=== PATIENT | female | born 2000 | race Caucasian/White ===

== ENCOUNTER 2018-01-05 21:13 | Emergency (ER) | payer MEDICAID, OTHER ==
[~2018-01-05] VITALS: Ht 165.1 cm; Wt 47.0 kg
[~2018-01-05 21:13] MED LIST: ARIP5TAB4 PO; CEPH500C5 PO; ESCI5TAB PO; SULF-117 PO
[2018-01-05 21:26] VITALS: BP 113/75
[2018-01-05 21:53] LABS: URINE HCG NEGATIVE (NEG)
[2018-01-05 21:56] LABS: CLARITY,URINE CLEAR (Clear); COLOR,URINE ORANGE (Yellow)
[2018-01-05 22:00] LABS: UA COLLECTION TYPE NON-SPECIFIED
[2018-01-05 22:04] LABS: SQUAMOUS EPITHELIAL CELL,UR MODERATE /LPF (FEW)
[2018-01-05 22:05] LABS: MUCUS STRANDS MODERATE /LPF (Neg)
[2018-01-05 22:06] LABS: BACTERIA,URINE 3+ /HPF (Neg); RBC,URINE 0-2 /HPF (0-2); WBC,URINE 50-100 /HPF (0-4)
[2018-01-05] MEDS ORDERED: PHEN-716 PO (22:15)
[2018-01-05] MEDS ORDERED: CEPH500C2 PO (22:15)
== END 2018-01-05 22:23 | disposition home or self-care (01) ==
LOC: ER 21:13
DX: N39.0 Urinary tract infection, site not specified (principal); J45.909 Unspecified asthma, uncomplicated
CPT/HCPCS: 81001; 81025; 87077; 87088; 87186; 99284

== ENCOUNTER 2018-01-23 10:36 | Emergency (ER) | payer MEDICAID ==
[~2018-01-23] VITALS: Ht 165.1 cm; Wt 46.5 kg
[~2018-01-23 10:36] MED LIST changes: +CEPH500C2 PO; +PHEN-716 PO
[2018-01-23 10:40] VITALS: BP 119/70
[2018-01-23] MEDS ORDERED: CefTRIAXone 1000mg IM Kit (w/lidocaine diluent) IM ONE (11:00)
[2018-01-23] MEDS ORDERED: azithromycin 250mg tablet PO ONE (11:00)
== END 2018-01-23 11:41 | disposition home or self-care (01) ==
LOC: ER 10:36
DX: A64 Unspecified sexually transmitted disease (principal); J45.909 Unspecified asthma, uncomplicated; Z79.899 Other long term (current) drug therapy
CPT/HCPCS: 36415; 87491; 87591; 96372; 99284; J0696

== ENCOUNTER 2018-11-02 19:04 | Emergency (ER) | payer MEDICAID ==
[~2018-11-02] VITALS: Ht 165.1 cm; Wt 42.9 kg
[~2018-11-02 19:04] MED LIST changes: -CEPH500C2 PO; -CEPH500C5 PO
[2018-11-02 19:22] VITALS: BP 123/71
[2018-11-02 20:33] LABS: URINE HCG NEGATIVE (NEG)
[2018-11-02] MEDS ORDERED: CefTRIAXone 1000mg IM Kit (w/lidocaine diluent) IM ONE (21:00)
[2018-11-02] MEDS ORDERED: azithromycin 250mg tablet PO ONE (21:00)
== END 2018-11-02 21:48 | disposition home or self-care (01) ==
LOC: ER 19:05
DX: N89.8 Other specified noninflammatory disorders of vagina (principal); N94.10 Unspecified dyspareunia; R39.15 Urgency of urination; J45.909 Unspecified asthma, uncomplicated; F17.200 Nicotine dependence, unspecified, uncomplicated; Z79.899 Other long term (current) drug therapy
CPT/HCPCS: 36415; 81025; 87210; 87491; 87591; 96372; 99283; J0696

== ENCOUNTER 2018-11-22 07:32 | Emergency (ER) | payer MEDICAID ==
[~2018-11-22] VITALS: Ht 165.1 cm; Wt 48.6 kg
[2018-11-22 07:35] VITALS: BP 111/66
[2018-11-22] MEDS ORDERED: BENZ-16 PO (08:00)
[2018-11-22] MEDS ORDERED: AFRIN NS (08:00)
== END 2018-11-22 08:09 | disposition home or self-care (01) ==
LOC: ER 07:33
DX: J06.9 Acute upper respiratory infection, unspecified (principal); J45.909 Unspecified asthma, uncomplicated; F17.210 Nicotine dependence, cigarettes, uncomplicated; Z71.6 Tobacco abuse counseling; Z79.899 Other long term (current) drug therapy
CPT/HCPCS: 99283; 99406

== ENCOUNTER 2019-03-23 12:51 | Emergency (ER) | payer MEDICAID ==
[~2019-03-23] VITALS: Ht 165.1 cm; Wt 50.0 kg
[2019-03-23 12:52] VITALS: BP 96/64
[2019-03-23] MEDS ORDERED: AMOX-580 PO (14:05)
== END 2019-03-23 14:17 | disposition home or self-care (01) ==
LOC: ER 12:51
DX: H66.91 Otitis media, unspecified, right ear (principal); J45.909 Unspecified asthma, uncomplicated; Z79.899 Other long term (current) drug therapy
CPT/HCPCS: 99283

== ENCOUNTER 2019-04-05 19:52 | Emergency (ER) | payer MEDICAID ==
[~2019-04-05] VITALS: Ht 165.1 cm; Wt 49.0 kg
[~2019-04-05 19:52] MED LIST changes: +AMOX-580 PO
[2019-04-05 20:14] VITALS: BP 112/64
[2019-04-05] MEDS ORDERED: NEOM10DR45 RIGHT EAR (22:03)
== END 2019-04-05 22:20 | disposition home or self-care (01) ==
LOC: ER 19:52
DX: H60.91 Unspecified otitis externa, right ear (principal); J45.909 Unspecified asthma, uncomplicated; Z79.2 Long term (current) use of antibiotics; Z79.899 Other long term (current) drug therapy
CPT/HCPCS: 99283

== ENCOUNTER 2019-07-19 15:29 | Emergency (ER) | payer MEDICAID ==
[~2019-07-19] VITALS: Ht 165.1 cm; Wt 46.6 kg
[~2019-07-19 15:29] MED LIST changes: -AMOX-580 PO; +ARIP5TAB14 PO; -ARIP5TAB4 PO; +NEOM10DR45 RIGHT EAR
[2019-07-19] MEDS ORDERED: ketorolac trometh. 30mg/ml inj. IM ONE (16:05)
[2019-07-19 16:43] LABS: EOSINOPHILS # (AUTO) 0.1 X10'3 (0-0.9); EOSINOPHILS % (AUTO) 2.6 % (0-6); HEMATOCRIT 37.3 % (35.0-45.0); HEMOGLOBIN 12.8 g/dl (12.0-16.0); LYMPHOCYTES # (AUTO) 0.9 X10'3 (1.1-4.8); LYMPHOCYTES % (AUTO) 23.8 % (21-51); MEAN CORPUSCULAR HEMOGLOBIN 30.3 PG (27.0-31.0); MEAN CORPUSCULAR HGB CONC 34.4 g/dL (33.0-36.5); MEAN CORPUSCULAR VOLUME 88.2 FL (78-98); MEAN PLATELET VOLUME 8.3 FL (7.4-10.4); MONOCYTES # (AUTO) 0.5 X10'3 (0-0.9); MONOCYTES % (AUTO) 12.8 % (2-12); NEUTROPHILS # (AUTO) 2.2 X10'3 (1.8-7.7); NEUTROPHILS % (AUTO) 59.8 % (42-75); PLATELET COUNT 172 X10'3 (140-440); RED BLOOD COUNT 4.23 X10'6 (4.20-5.60); RED CELL DISTRIBUTION WIDTH 13.3 % (11.5-14.5); WHITE BLOOD COUNT 3.6 X10'3 (4.5-11.0)
[2019-07-19] MEDS ORDERED: TAM75C PO (16:54)
[2019-07-19] MEDS ORDERED: AZIT-63 PO (16:54)
[2019-07-19] MEDS ORDERED: oseltamivir phos 75mg capsule PO ONE (16:55)
[2019-07-19] MEDS ORDERED: azithromycin 250mg tablet PO ONE (16:55)
[2019-07-19 17:05] VITALS: BP 111/78
== END 2019-07-19 17:07 | disposition home or self-care (01) ==
LOC: ER 15:29
DX: J11.1 Influenza due to unidentified influenza virus with other respiratory manifestations (principal); J45.909 Unspecified asthma, uncomplicated; Z79.899 Other long term (current) drug therapy
CPT/HCPCS: 36415; 85025; 87502; 87503; 96372; 99283; J1885

== ENCOUNTER 2020-06-28 05:43 | Emergency (ER) | payer MEDICAID ==
[~2020-06-28] VITALS: Ht 165.1 cm; Wt 43.2 kg
[2020-06-28] MEDS ORDERED: acetaminophen 325mg tablet PO PRN (05:50)
[2020-06-28] MEDS ORDERED: normal saline 1000ml 1,000 ML IVB ONE (05:50)
[2020-06-28 06:37] LABS: BASOPHILS % (AUTO) 0.2 % (0-1); EOSINOPHILS % (AUTO) 0.1 % (0-6); HEMOGLOBIN 14.2 g/dl (12.0-16.0); LYMPHOCYTES # (AUTO) 0.5 X10'3 (1.1-4.8); LYMPHOCYTES % (AUTO) 2.8 % (21-51); MEAN CORPUSCULAR HEMOGLOBIN 29.5 PG (27.0-31.0); MEAN CORPUSCULAR HGB CONC 33.8 g/dL (33.0-36.5); MEAN CORPUSCULAR VOLUME 87.3 FL (78-98); MEAN PLATELET VOLUME 8.7 FL (7.4-10.4); MONOCYTES # (AUTO) 0.6 X10'3 (0-0.9); MONOCYTES % (AUTO) 3.4 % (2-12); NEUTROPHILS # (AUTO) 15.3 X10'3 (1.8-7.7); NEUTROPHILS % (AUTO) 93.5 % (42-75); PLATELET COUNT 143 X10'3 (140-440); RED BLOOD COUNT 4.81 X10'6 (4.20-5.60); RED CELL DISTRIBUTION WIDTH 13.1 % (11.5-14.5); WHITE BLOOD COUNT 16.3 X10'3 (4.5-11.0)
[2020-06-28] MEDS ORDERED: normal saline 1000ml 1,000 ML IV ONE ×2 (06:55→13:10)
[2020-06-28 06:57] LABS: ALANINE AMINOTRANSFERASE 22 U/L (12-78); ALBUMIN 3.3 G/DL (3.4-5.0); ALBUMIN/GLOBULIN RATIO 0.8 (1.1-1.5); ALKALINE PHOSPHATASE 65 IU/L (46-116); ANION GAP 12 (8-16); ASPARTATE AMINO TRANSFERASE 60 U/L (10-37); BILIRUBIN,TOTAL 0.7 MG/DL (0.1-1.0); BLOOD UREA NITROGEN 16 MG/DL (7-18); BUN/CREATININE RATIO 18.8 (6.6-38.0); CALCIUM 8.5 MG/DL (8.5-10.1); CHLORIDE 99 MMOL/L (99-107); CREATININE 0.85 MG/DL (0.40-0.90); GLUCOSE 114 MG/DL (70-104); POTASSIUM 3.9 MMOL/L (3.5-5.1); SODIUM 135 MMOL/L (135-145); TOTAL CARBON DIOXIDE 24.2 MMOL/L (24-32); TOTAL PROTEIN 7.7 G/DL (6.4-8.2); eGFR 84 ML/MIN
[2020-06-28 07:04] LABS: TOTAL CELLS COUNTED 100
[2020-06-28 07:05] LABS: PLATELET ESTIMATE NORMAL; TOXIC VACUOLATION 2+
[2020-06-28] MEDS: ibuprofen tablet 400 MG TABLET PO ONE ×2 (07:15→08:15)
[2020-06-28 11:58] LABS: URINE HCG NEGATIVE (NEG)
[2020-06-28 12:00] LABS: CLARITY,URINE SLIGHTLY CLOUDY (Clear); COLOR,URINE YELLOW (Yellow); GLUCOSE, URINE NEGATIVE (Neg); KETONES,URINE NEGATIVE (Neg); LEUKOCYTE ESTERASE ,URINE SMALL (Neg); NITRITES, URINE NEGATIVE (Neg); OCCULT BLOOD,URINE TRACE-LYSED (Neg); PROTEIN,URINE NEGATIVE (Neg); UROBILINOGEN,URINE 0.2 E.U/dL (0.2-1.0)
[2020-06-28 12:16] LABS: URINE AMPHETAMINE SCREEN NEGATIVE (Neg); URINE BARBITUATE SCREEN NEGATIVE (Neg); URINE BENZODIAZEPINES SCREEN NEGATIVE (Neg); URINE CANNABINOID SCREEN NEGATIVE (Neg); URINE COCAINE SCREEN NEGATIVE (Neg); URINE METHADONE SCREEN NEGATIVE (Neg); URINE OPIATE SCREEN POSITIVE (Neg); URINE PHENCYCLIDINE SCREEN NEGATIVE (Neg)
[2020-06-28 12:22] LABS: UA COLLECTION TYPE STRAIGHT CATH
[2020-06-28 12:24] LABS: BACTERIA,URINE 3+ /HPF (Neg); HYALINE CASTS 0-3 /LPF (NEGATIVE); MUCUS STRANDS FEW /LPF (Neg); RBC,URINE 0-2 /HPF (0-2); SQUAMOUS EPITHELIAL CELL,UR FEW /LPF (FEW); WBC,URINE 20-30 /HPF (0-4)
[2020-06-28] MEDS ORDERED: CefTRIAXone/D5W-Rocephin 1gm 50 ML IV ONE (12:30)
[2020-06-28] MEDS ORDERED: CEFD300C3 PO (12:34)
[2020-06-28] MEDS ORDERED: acetaminophen 325mg tablet PO ONE (13:10)
[2020-06-28 15:37] VITALS: BP 109/71
== END 2020-06-28 15:44 | disposition home or self-care (01) ==
LOC: ER 05:43
DX: U07.1 COVID-19 (principal); N12 Tubulo-interstitial nephritis, not specified as acute or chronic; R53.81 Other malaise; R50.9 Fever, unspecified; J02.9 Acute pharyngitis, unspecified; R05 Cough; J45.909 Unspecified asthma, uncomplicated; Z87.440 Personal history of urinary (tract) infections; Z79.2 Long term (current) use of antibiotics; Z79.899 Other long term (current) drug therapy
CPT/HCPCS: 36415; 71045; 80053; 80305; 81001; 81025; 83605; 84145; 85007; 85025; 87040; 87077; 87088; 87186; 87635; 93005; 96361; 96365; 99285; C9803; J0696; J7030

== ENCOUNTER 2020-06-30 18:34 | Inpatient (IN) | payer MEDICAID ==
[~2020-06-30] VITALS: Ht 165.1 cm; Wt 46.9 kg
[2020-06-30] MEDS: normal saline 1000ml 1,000 ML IV SCH (01:15)
[~2020-06-30 18:34] MED LIST changes: +CEFD300C3 PO
[2020-06-30] MEDS ORDERED: dexamethasone sod phosphate 10mg/ml inj IV STA (18:55)
[2020-06-30] MEDS ORDERED: CefTRIAXone/D5W-Rocephin 1gm 50 ML IV ONE (19:00)
[2020-06-30] MEDS ORDERED: normal saline 1000ml 1,000 ML IV ONE (19:00)
[2020-06-30 19:26] LABS: ABG BASE EXCESS -1.4 mmol/L (-2.0-2.0); ABG HCO3 22.1 mmol/L (22.0-26.0); ABG OXYGEN SATURATION 83.7 % (94-97); ABG PCO2 (T) 32.8 mmHg (32.0-45.0); ABG PO2 (T) 47.3 mmHg (75.0-100.0); ALLEN'S TEST POSITIVE; FCOHb 0.3 % (0.0-3.9); FLOW 6 L/min; FMetHb 0.2 % (0.0-1.5); FO2Hb 83.3 % (94-97); PATIENT TEMPERATURE 36.6; TOTAL HEMOGLOBIN 12.5 G/dl (12.0-16.0)
--- NOTE | 2020-06-30 19:28 | NUR ---
O2 TURNED DOWN TO 12 L FOR PT COMFORT. 02 96%
[2020-06-30] MEDS ORDERED: LORazepam 2 mg/ml vial IV ONE (19:30)
[2020-06-30] MEDS ORDERED: ketorolac tromethamine 15mg/ml inj. IV ONE (19:30)
[2020-06-30] MEDS ORDERED: acetaminophen 325mg tablet PO ONE (19:30)
--- NOTE | 2020-06-30 19:49 | NUR ---
ATIVAN PULLED, PARTIAL DOSE WASTED IN OMNICELL WITH SECOND RN. MEDICATION HANDED OFF TO PRIMARY RN, WILBUR FOR ADMINISTRATION
[2020-06-30 20:14] LABS: BASOPHILS % (AUTO) 0.2 % (0-1); EOSINOPHILS # (AUTO) 0.1 X10'3 (0-0.9); EOSINOPHILS % (AUTO) 1.3 % (0-6); HEMATOCRIT 34.2 % (35.0-45.0); HEMOGLOBIN 11.8 g/dl (12.0-16.0); LYMPHOCYTES # (AUTO) 0.9 X10'3 (1.1-4.8); LYMPHOCYTES % (AUTO) 8.5 % (21-51); MEAN CORPUSCULAR HEMOGLOBIN 29.9 PG (27.0-31.0); MEAN CORPUSCULAR HGB CONC 34.3 g/dL (33.0-36.5); MEAN CORPUSCULAR VOLUME 86.9 FL (78-98); MEAN PLATELET VOLUME 10.3 FL (7.4-10.4); MONOCYTES # (AUTO) 0.7 X10'3 (0-0.9); MONOCYTES % (AUTO) 7.1 % (2-12); NEUTROPHILS # (AUTO) 8.3 X10'3 (1.8-7.7); NEUTROPHILS % (AUTO) 82.9 % (42-75); PLATELET COUNT 78 X10'3 (140-440); RED BLOOD COUNT 3.94 X10'6 (4.20-5.60); RED CELL DISTRIBUTION WIDTH 13.8 % (11.5-14.5); WHITE BLOOD COUNT 10.1 X10'3 (4.5-11.0)
[2020-06-30] MEDS ORDERED: succinylcholine 20mg/ml inj IV ONE (20:30)
[2020-06-30 20:38] LABS: D-DIMER 6.43 MG/L FEU (0-0.50)
--- NOTE | 2020-06-30 20:39 | NUR ---
Pt.'s father called to check on pt. and would like Pt.'s RN to call him with updates. Cell Phone # [phone] Addendum: 06/30/20 at 4 by PABLO Pt's father's name is Williams
[2020-06-30 20:49] LABS: ALANINE AMINOTRANSFERASE 39 U/L (12-78); ALBUMIN 1.9 G/DL (3.4-5.0); ALBUMIN/GLOBULIN RATIO 0.5 (1.1-1.5); ALKALINE PHOSPHATASE 80 IU/L (46-116); ANION GAP 10 (8-16); ASPARTATE AMINO TRANSFERASE 82 U/L (10-37); BILIRUBIN,TOTAL 0.8 MG/DL (0.1-1.0); BLOOD UREA NITROGEN 32 MG/DL (7-18); CALCIUM 6.7 MG/DL (8.5-10.1); CHLORIDE 106 MMOL/L (99-107); GLUCOSE 109 MG/DL (70-104); LACTATE DEHYDROGENASE 823 U/L (81-234); SODIUM 139 MMOL/L (135-145); TOTAL CARBON DIOXIDE 23.5 MMOL/L (24-32); TOTAL PROTEIN 5.9 G/DL (6.4-8.2); eGFR > 90 ML/MIN
[2020-06-30] MEDS: midazolam 100mg in NS 100ml 100 ML IV PRN ×2 (20:50→22:51)
[2020-06-30] MEDS: FENTANYL-0.9 % NACL/PF 100 ML IV PRN ×2 (20:50→22:50)
[2020-06-30] MEDS ORDERED: etomidate 2mg/ml inj. IV ONE ×2 (20:50→21:00)
[2020-06-30] MEDS ORDERED: fentaNYL/PF 50MCG/1 ML 2ML syringe ONE (20:53)
[2020-06-30 20:54] LABS: FERRITIN 2595 NG/ML (8-252)
[2020-06-30] MEDS ORDERED: MIDAZolam 5mg/ml 2ml vial IV ONE (20:55)
[2020-06-30] MEDS ORDERED: fentaNYL/PF 50MCG/1 ML 2ML syringe IV ONE (20:55)
[2020-06-30 20:56] LABS: POTASSIUM 2.8 MMOL/L (3.5-5.1)
--- NOTE | 2020-06-30 21:02 | NUR ---
Versed and Fentanyl drips handed to Dr. Johnson in Pt. room.
[2020-06-30 21:09] LABS: C-REACTIVE PROTEIN 31.77 MG/DL (0.0-0.5)
[2020-06-30] MEDS ORDERED: iohexol 350MG/ML 100ml bottle IV ONE (21:14)
[2020-06-30 21:15] LABS: ABG BASE EXCESS -5.9 mmol/L (-2.0-2.0); ABG HCO3 18.9 mmol/L (22.0-26.0); ABG OXYGEN SATURATION 91.4 % (94-97); ABG PCO2 (T) 33.8 mmHg (32.0-45.0); ALLEN'S TEST POSITIVE; FCOHb 0.1 % (0.0-3.9); FMetHb 0.1 % (0.0-1.5); FO2Hb 91.2 % (94-97); PATIENT TEMPERATURE 36.4; PEEP 10 cm H2O; RESPIRATORY RATE 18 b/min; TIDAL VOLUME 400 mL; TOTAL HEMOGLOBIN 12.1 G/dl (12.0-16.0)
[2020-06-30 22:02] LABS: TROPONIN I 0.05 NG/ML (0.0-0.05)
[2020-06-30] MEDS ORDERED: ondansetron/PF 4mg/2ml inj IV PRN (23:10)
[2020-06-30] MEDS ORDERED: LIDOcaine 2% 10ml TOPICAL JELLY (Urojet) TP ONE (23:10)
[2020-06-30] MEDS ORDERED: potassium CL 10mEq/100ml bag 100 ML IV PRN ×2 (23:10)
[2020-06-30] MEDS ORDERED: potassium Cl 20 mEq SR tablet PO PRN ×2 (23:10)
[2020-06-30] MEDS ORDERED: potassium Cl 20mEq/100mL bag 100 ML IV PRN (23:10)
[2020-06-30] MEDS ORDERED: potassium Cl 10 mEq/100mL bag IV ONE (23:10)
[2020-06-30] MEDS ORDERED: morphine 2 MG/ML inj. syringe IV PRN (23:10)
[2020-06-30] MEDS ORDERED: morphine 4 MG/ML inj SYRINge IV PRN (23:10)
[2020-06-30] MEDS: K, MAG and/or Phos replacement - Verify level? MC SCH (23:10)
[2020-06-30] MEDS ORDERED: FENTANYL-0.9 % NACL/PF 100 ML IV PRN (23:10)
[2020-06-30] MEDS ORDERED: acetaminophen 325mg tablet PO PRN ×2 (23:10)
--- NOTE | 2020-06-30 23:50 | NUR ---
At approx 2019 PCT tech entered pt covid isolation room to obtain an EKG. Pt had pulled her hi-flow NC off and had desatted to the low 60's. Primary RN replaced Hi flow NC, placed O2 probe on new finger, and encourage pt to breathe deeply and slowly. Pt was obtunded and could not follow directions. ER MD was called to the room and patient was prepared for intubation. 2034: 100 mg Etomidate and 100 mg succs adminstered per MD order. Pt was intubated using an 7 blade and bougie. After intubation positive color change on the CO2 indicator was noted. Tube was 22 at the teeth. 2099: Pt given and additional 20 mg Etomidate for pt restlessness. Temp vizcaino and NG Tube placed. Placement confirmed by X-ray. NG tube drawn back approx 10 cm. Restraints placed on pt for safety. MD order for 50 mcg fentanyl and 5 mg versed for sedation bolus. 2144: Central line placed by MD. Midazolam and Fentanyl drips for sedation started per MD order. After Central line placement, pt had CT scan, and central line placement was confirmed.
[2020-07-01] VITALS (23 sets, daily range): BP systolic 99–116; BP diastolic 54–79
--- NOTE | 2020-07-01 00:32 | NUR ---
Mother Sylvia Joshua [phone]
--- NOTE | 2020-07-01 01:00 | NUR ---
Patient in room CICU 2006. I have received report from Pratibha FITZPATRICK and had the opportunity to ask questions and assume patient care.
[2020-07-01 03:12] LABS: EOSINOPHILS # (AUTO) 0.1 X10'3 (0-0.9); EOSINOPHILS % (AUTO) 0.5 % (0-6); HEMATOCRIT 32.6 % (35.0-45.0); MONOCYTES # (AUTO) 0.7 X10'3 (0-0.9); NEUTROPHILS # (AUTO) 10.9 X10'3 (1.8-7.7)
[2020-07-01 03:14] LABS: BASOPHILS % (AUTO) 0.2 % (0-1); HEMOGLOBIN 11.1 g/dl (12.0-16.0); LYMPHOCYTES # (AUTO) 0.7 X10'3 (1.1-4.8); LYMPHOCYTES % (AUTO) 5.8 % (21-51); MEAN CORPUSCULAR HEMOGLOBIN 29.3 PG (27.0-31.0); MEAN CORPUSCULAR HGB CONC 33.9 g/dL (33.0-36.5); MEAN CORPUSCULAR VOLUME 86.5 FL (78-98); MEAN PLATELET VOLUME 10.2 FL (7.4-10.4); MONOCYTES % (AUTO) 5.9 % (2-12); NEUTROPHILS % (AUTO) 87.6 % (42-75); PLATELET COUNT 74 X10'3 (140-440); RED BLOOD COUNT 3.77 X10'6 (4.20-5.60); WHITE BLOOD COUNT 12.4 X10'3 (4.5-11.0)
[2020-07-01 03:22] LABS: ALANINE AMINOTRANSFERASE 56 U/L (12-78); ALBUMIN 1.9 G/DL (3.4-5.0); ALBUMIN/GLOBULIN RATIO 0.5 (1.1-1.5); ALKALINE PHOSPHATASE 104 IU/L (46-116); ANION GAP 9 (8-16); ASPARTATE AMINO TRANSFERASE 129 U/L (10-37); BILIRUBIN,TOTAL 0.8 MG/DL (0.1-1.0); BLOOD UREA NITROGEN 35 MG/DL (7-18); BUN/CREATININE RATIO 41.2 (6.6-38.0); CALCIUM 6.9 MG/DL (8.5-10.1); CHLORIDE 108 MMOL/L (99-107); CREATININE 0.85 MG/DL (0.40-0.90); GLUCOSE 156 MG/DL (70-104); PHOSPHORUS 2.8 MG/DL (2.3-4.5); POTASSIUM 5.1 MMOL/L (3.5-5.1); SODIUM 139 MMOL/L (135-145); TOTAL CARBON DIOXIDE 22.3 MMOL/L (24-32); TOTAL PROTEIN 5.8 G/DL (6.4-8.2); eGFR 84 ML/MIN
[2020-07-01 03:43] LABS: ANISOCYTOSIS 1+; BURR CELLS FEW; PLATELET ESTIMATE DECREASED; TOTAL CELLS COUNTED 100
[2020-07-01 03:55] LABS: ABG BASE EXCESS -6.3 mmol/L (-2.0-2.0); ABG HCO3 17.1 mmol/L (22.0-26.0); ABG OXYGEN SATURATION 99.5 % (94-97); ABG PCO2 (T) 28.6 mmHg (32.0-45.0); ABG PO2 (T) 412.9 mmHg (75.0-100.0); ALLEN'S TEST POSITIVE; FCOHb 0.3 % (0.0-3.9); FMetHb 0.3 % (0.0-1.5); FO2Hb 98.9 % (94-97); PATIENT TEMPERATURE 37.6; PEEP 10 cm H2O; RESPIRATORY RATE 18 b/min; TIDAL VOLUME 400 mL; TOTAL HEMOGLOBIN 11.7 G/dl (12.0-16.0)
[2020-07-01 04:10] LABS: OXYGEN SATURATION (MIXED VEN) 79.8 % (60-80)
--- NOTE | 2020-07-01 06:32 | NUR ---
Problems reprioritized. Patient report given, questions answered & plan of care reviewed with Kellie FITZPATRICK.
[2020-07-01] MEDS: K, MAG and/or Phos replacement - Verify level? MC SCH (08:00)
[2020-07-01] MEDS: pantoprazole 40 MG vial IV SCH (08:37)
[2020-07-01] MEDS: CefTRIAXone 2gm/D5W 50ml BAG 50 ML IV SCH (08:38)
[2020-07-01] MEDS: dexamethasone sod phosphate 10mg/ml inj IV SCH (08:38)
[2020-07-01] MEDS: enoxaparin 40mg/0.4ml syringe SUBCUT SCH (08:39)
[2020-07-01 10:35] LABS: CLARITY,URINE CLOUDY (Clear); COLOR,URINE YELLOW (Yellow); GLUCOSE, URINE NEGATIVE (Neg); KETONES,URINE 40 mg/dl (Neg); LEUKOCYTE ESTERASE ,URINE NEGATIVE (Neg); NITRITES, URINE NEGATIVE (Neg); OCCULT BLOOD,URINE TRACE-INTACT (Neg); PROTEIN,URINE 30 mg/dl (Neg); UROBILINOGEN,URINE 0.2 E.U/dL (0.2-1.0)
[2020-07-01 10:38] LABS: UA COLLECTION TYPE FOLEY CATH
[2020-07-01 10:49] LABS: HYALINE CASTS 0-3 /LPF (NEGATIVE)
[2020-07-01 10:50] LABS: MUCUS STRANDS FEW /LPF (Neg); TRANSITIONAL EPI CELLS,URINE MANY /HPF
[2020-07-01 10:51] LABS: SQUAMOUS EPITHELIAL CELL,UR FEW /LPF (FEW)
[2020-07-01 10:52] LABS: RBC,URINE 0-2 /HPF (0-2); RENAL CELLS, URINE MODERATE /HPF; WBC,URINE 0-4 /HPF (0-4)
[2020-07-01 10:54] LABS: BACTERIA,URINE NONE SEEN /HPF (Neg)
[2020-07-01 10:55] LABS: AMORPHOUS URATES 1+
[2020-07-01] MEDS ORDERED: NO HOME MEDS (11:18)
--- NOTE | 2020-07-01 13:26 | NUR ---
TF Consult: Pt intubated admit DX COVID-19, acute respiratory failure w/ hypoxia, sepsis, and polysubstance abuse per EMR. MAP 75 this AM w/ OG in place. OGTF to start today per heel finisher w/ recs below using IBW given BMI 16.9. Pt has no edema/wounds, mild weakness, and current bed scale wt 46kg first scaled wt though no significant wt loss hx compared to prior ER visit reported wts. Appears well-nourished/well-developed per ER note; likely maintains small stature w/ heroin use hx; does not meet malnutrition criteria currently. Will monitor for EN tolerance and additional protein needs this admit. Rec: 1. OGTF using Vital AF at 60ml/hr goal; to provide 1440ml volume, 1728 kcals, 1166ml free water, and 108g protein. 2. PALB Q /; daily wts 3. additional water flush 100ml Q4 4. routine bowel care 5. monitor for EN tolerance and signs of refeeding Addendum: 07/01/20 at [address] Amended: Links added.
[2020-07-01] MEDS ORDERED: acetaminophen 325mg/10.15ml oral unit dose solution OGT PRN (13:38)
[2020-07-01] MEDS ORDERED: POTASSIUM BICARB 20meq eff tab 20 MEQ TABLET.EFF PO PRN (13:40)
[2020-07-01] MEDS ORDERED: POTASSIUM BICARB 20meq eff tab 20 MEQ TABLET.EFF OGT PRN ×2 (13:40)
[2020-07-01 14:09] LABS: PREALBUMIN 4.2 MG/DL (19-36)
[2020-07-01] MEDS: midazolam 100mg in NS 100ml 100 ML IV PRN ×2 (14:17→21:10)
--- NOTE | 2020-07-01 18:30 | NUR ---
Patient in room CICU 2006. I have received report from Kellie FITZPATRICK and had the opportunity to ask questions and assume patient care.
[2020-07-01] MEDS: normal saline 1000ml 1,000 ML IV SCH (19:10)
--- NOTE | 2020-07-01 20:30 | NUR ---
Patients mother updated on POC.
--- NOTE | 2020-07-01 21:00 | NUR ---
Peep decreased to 8 per LADLE LINER HELPER. Will continue to monitor closely.
[2020-07-01] MEDS: lactobacillus rhamnosus 10,000 MMU CELLS/CAPSULE OGT SCH (21:09)
[2020-07-01] MEDS: FENTANYL-0.9 % NACL/PF 100 ML IV PRN (21:10)
[2020-07-02] VITALS (24 sets, daily range): BP systolic 104–118; BP diastolic 58–80
[2020-07-02] MEDS: mineral oil/petrolatum ophthal oint EACHEYE SCH ×4 (02:25→20:14)
[2020-07-02 02:59] LABS: BASOPHILS % (AUTO) 0.4 % (0-1); EOSINOPHILS % (AUTO) 0.2 % (0-6); HEMATOCRIT 28.9 % (35.0-45.0); HEMOGLOBIN 9.7 g/dl (12.0-16.0); LYMPHOCYTES # (AUTO) 1.2 X10'3 (1.1-4.8); MEAN CORPUSCULAR HEMOGLOBIN 29.2 PG (27.0-31.0); MEAN CORPUSCULAR HGB CONC 33.5 g/dL (33.0-36.5); MEAN CORPUSCULAR VOLUME 87.1 FL (78-98); MEAN PLATELET VOLUME 11.2 FL (7.4-10.4); MONOCYTES # (AUTO) 1.6 X10'3 (0-0.9); MONOCYTES % (AUTO) 13.1 % (2-12); NEUTROPHILS # (AUTO) 9.1 X10'3 (1.8-7.7); NEUTROPHILS % (AUTO) 76.3 % (42-75); PLATELET COUNT 77 X10'3 (140-440); RED BLOOD COUNT 3.32 X10'6 (4.20-5.60); RED CELL DISTRIBUTION WIDTH 13.8 % (11.5-14.5); WHITE BLOOD COUNT 11.9 X10'3 (4.5-11.0)
[2020-07-02 03:10] LABS: ALANINE AMINOTRANSFERASE 43 U/L (12-78); ALBUMIN 1.8 G/DL (3.4-5.0); ALBUMIN/GLOBULIN RATIO 0.4 (1.1-1.5); ALKALINE PHOSPHATASE 87 IU/L (46-116); ANION GAP 8 (8-16); ASPARTATE AMINO TRANSFERASE 82 U/L (10-37); BILIRUBIN,TOTAL 0.4 MG/DL (0.1-1.0); BLOOD UREA NITROGEN 24 MG/DL (7-18); C-REACTIVE PROTEIN 17.89 MG/DL (0.0-0.5); CALCIUM 7.2 MG/DL (8.5-10.1); CHLORIDE 112 MMOL/L (99-107); GLUCOSE 153 MG/DL (70-104); MAGNESIUM 2.9 MG/DL (1.5-2.4); PHOSPHORUS 1.9 MG/DL (2.3-4.5); POTASSIUM 3.6 MMOL/L (3.5-5.1); SODIUM 145 MMOL/L (135-145); TOTAL CARBON DIOXIDE 24.9 MMOL/L (24-32); TOTAL PROTEIN 5.9 G/DL (6.4-8.2); eGFR > 90 ML/MIN
[2020-07-02 03:12] LABS: D-DIMER 11.06 MG/L FEU (0-0.50)
[2020-07-02 04:31] LABS: ABG BASE EXCESS -1.9 mmol/L (-2.0-2.0); ABG OXYGEN SATURATION 96.7 % (94-97); ABG PO2 (T) 97.3 mmHg (75.0-100.0); ALLEN'S TEST POSITIVE; FCOHb 0.3 % (0.0-3.9); FMetHb 0.2 % (0.0-1.5); FO2Hb 96.2 % (94-97); PATIENT TEMPERATURE 37.5; PEEP 8 cm H2O; RESPIRATORY RATE 18 b/min; TIDAL VOLUME 400 mL; TOTAL HEMOGLOBIN 10.8 G/dl (12.0-16.0)
--- NOTE | 2020-07-02 06:30 | NUR ---
Received report from NANETTE Kelly
--- NOTE | 2020-07-02 06:39 | NUR ---
Problems reprioritized. Patient report given, questions answered & plan of care reviewed with Kellie FITZPATRICK.
[2020-07-02] MEDS: K, MAG and/or Phos replacement - Verify level? MC SCH (08:00)
[2020-07-02] MEDS: enoxaparin 40mg/0.4ml syringe SUBCUT SCH (09:14)
[2020-07-02] MEDS: pantoprazole 40 MG vial IV SCH (09:14)
[2020-07-02] MEDS: dexamethasone sod phosphate 10mg/ml inj IV SCH (09:14)
[2020-07-02] MEDS: lactobacillus rhamnosus 10,000 MMU CELLS/CAPSULE OGT SCH ×2 (09:14→20:14)
[2020-07-02] MEDS: CefTRIAXone 2gm/D5W 50ml BAG 50 ML IV SCH (09:14)
[2020-07-02] MEDS: midazolam 100mg in NS 100ml 100 ML IV PRN (13:34)
[2020-07-02] MEDS ORDERED: dextrose 50%-water 50ml dispensing syringe IV PRN ×2 (15:40)
[2020-07-02] MEDS ORDERED: dextrose ORAL solution 15 GM/59 ML bottle PO PRN ×2 (15:40)
[2020-07-02] MEDS ORDERED: glucagon, human recombinant 1mg kit SUBCUT PRN (15:40)
[2020-07-02] MEDS: normal saline 1000ml 1,000 ML IV SCH (17:03)
--- NOTE | 2020-07-02 18:30 | NUR ---
Patient in room CICU 2006. I have received report from Kellie FITZPATRICK and had the opportunity to ask questions and assume patient care.
--- NOTE | 2020-07-02 18:35 | NUR ---
Rectal tube was placed by previous shift RN right at shift change. PT tolerated well. Stool is draining into tubing. Will continue to monitor.
--- NOTE | 2020-07-02 18:44 | NUR ---
Report given to NANETTE Fitch
[2020-07-02] MEDS: insulin glargine (Lantus) pen - multi-dose SQ SCH (20:22)
[2020-07-02] MEDS: insulin regular, human U-100 3ml vial - multi-dose SQ SCH (20:23)
[2020-07-02] MEDS: FENTANYL-0.9 % NACL/PF 100 ML IV PRN (20:34)
[2020-07-03] VITALS (24 sets, daily range): BP systolic 101–118; BP diastolic 55–78
[2020-07-03] MEDS: insulin regular, human U-100 3ml vial - multi-dose SQ SCH ×4 (02:36→20:43)
[2020-07-03] MEDS: mineral oil/petrolatum ophthal oint EACHEYE SCH ×4 (02:39→20:23)
[2020-07-03] MEDS: midazolam 100mg in NS 100ml 100 ML IV PRN (02:39)
[2020-07-03 02:46] LABS: ABG BASE EXCESS 1.3 mmol/L (-2.0-2.0); ABG HCO3 24.9 mmol/L (22.0-26.0); ABG OXYGEN SATURATION 94.5 % (94-97); ABG PCO2 (T) 35.1 mmHg (32.0-45.0); ALLEN'S TEST POSITIVE; FCOHb 0.3 % (0.0-3.9); FMetHb 0.1 % (0.0-1.5); FO2Hb 94.1 % (94-97); PATIENT TEMPERATURE 36.8; PEEP 5 cm H2O; RESPIRATORY RATE 18 b/min; TIDAL VOLUME 400 mL; TOTAL HEMOGLOBIN 10.2 G/dl (12.0-16.0)
[2020-07-03 03:14] LABS: BASOPHILS % (AUTO) 0.2 % (0-1); EOSINOPHILS % (AUTO) 0 % (0-6); HEMATOCRIT 27.6 % (35.0-45.0); HEMOGLOBIN 9.2 g/dl (12.0-16.0); LYMPHOCYTES # (AUTO) 1.7 X10'3 (1.1-4.8); LYMPHOCYTES % (AUTO) 12.4 % (21-51); MEAN CORPUSCULAR HGB CONC 33.1 g/dL (33.0-36.5); MEAN CORPUSCULAR VOLUME 87.4 FL (78-98); MEAN PLATELET VOLUME 11.2 FL (7.4-10.4); MONOCYTES # (AUTO) 1.7 X10'3 (0-0.9); MONOCYTES % (AUTO) 12.2 % (2-12); NEUTROPHILS # (AUTO) 10.2 X10'3 (1.8-7.7); NEUTROPHILS % (AUTO) 75.2 % (42-75); PLATELET COUNT 81 X10'3 (140-440); RED BLOOD COUNT 3.16 X10'6 (4.20-5.60); WHITE BLOOD COUNT 13.6 X10'3 (4.5-11.0)
[2020-07-03 03:26] LABS: ALANINE AMINOTRANSFERASE 44 U/L (12-78); ALBUMIN 1.8 G/DL (3.4-5.0); ALBUMIN/GLOBULIN RATIO 0.4 (1.1-1.5); ALKALINE PHOSPHATASE 84 IU/L (46-116); ANION GAP 5 (8-16); ASPARTATE AMINO TRANSFERASE 58 U/L (10-37); BILIRUBIN,TOTAL 0.3 MG/DL (0.1-1.0); BLOOD UREA NITROGEN 21 MG/DL (7-18); BUN/CREATININE RATIO 41.2 (6.6-38.0); C-REACTIVE PROTEIN 7.15 MG/DL (0.0-0.5); CALCIUM 7.3 MG/DL (8.5-10.1); CHLORIDE 114 MMOL/L (99-107); CREATININE 0.51 MG/DL (0.40-0.90); GLUCOSE 152 MG/DL (70-104); MAGNESIUM 2.5 MG/DL (1.5-2.4); PHOSPHORUS 1.5 MG/DL (2.3-4.5); POTASSIUM 3.7 MMOL/L (3.5-5.1); SODIUM 147 MMOL/L (135-145); TOTAL CARBON DIOXIDE 28.3 MMOL/L (24-32); TOTAL PROTEIN 5.9 G/DL (6.4-8.2); eGFR > 90 ML/MIN
[2020-07-03 03:27] LABS: D-DIMER 13.25 MG/L FEU (0-0.50)
--- NOTE | 2020-07-03 04:00 | NUR ---
Garcia cath changed using sterile technique. Garcia cath has been very positional throughout shift and sediment noted all along tubing. Catheter flushed with minimal resistance. When old cath D/C'd heavy sediment noted all around opening and balloon. PT tolerated well. Will continue to monitor.
--- NOTE | 2020-07-03 06:46 | NUR ---
Problems reprioritized. Patient report given, questions answered & plan of care reviewed with Arsh FITZPATRICK.
[2020-07-03 07:57] LABS: HIV ANTIBODY 1&2 RAPID NON-REACTIVE (Neg)
[2020-07-03] MEDS: K, MAG and/or Phos replacement - Verify level? MC SCH (08:00)
--- NOTE | 2020-07-03 09:00 | NUR ---
Tube feed residuals remain high despite pt stooling. GRV 350. 300 returned. TF rate reduced to 50; notified
[2020-07-03] MEDS: dexamethasone sod phosphate 10mg/ml inj IV SCH (09:46)
[2020-07-03] MEDS: pantoprazole 40 MG vial IV SCH (09:46)
[2020-07-03] MEDS: lactobacillus rhamnosus 10,000 MMU CELLS/CAPSULE OGT SCH ×2 (09:46→20:22)
[2020-07-03] MEDS: CefTRIAXone 2gm/D5W 50ml BAG 50 ML IV SCH (09:46)
[2020-07-03] MEDS: enoxaparin 40mg/0.4ml syringe SUBCUT SCH ×3 (09:47→20:23)
[2020-07-03] MEDS: ipratropium/albuterol 3ml nebule NEB PRN (10:54)
[2020-07-03] MEDS: normal saline 1000ml 1,000 ML IV SCH (11:24)
[2020-07-03] MEDS ORDERED: furosemide 40mg/4ml inj IV ONE (11:40)
[2020-07-03] MEDS: dexmedetomidine/D5W 100mL 100 ML IV SCH (12:27)
[2020-07-03] MEDS ORDERED: furosemide 20 MG/2 ML vial IV ONE (13:45)
[2020-07-03] MEDS: FENTANYL-0.9 % NACL/PF 100 ML IV PRN (16:13)
--- NOTE | 2020-07-03 18:30 | NUR ---
Patient in room CICU 2006. I have received report from Arsh FITZPATRICK and had the opportunity to ask questions and assume patient care.
[2020-07-03] MEDS: insulin glargine (Lantus) pen - multi-dose SQ SCH (20:44)
[2020-07-04] VITALS (24 sets, daily range): BP systolic 95–119; BP diastolic 7–78
[2020-07-04] MEDS: dexmedetomidine/D5W 100mL 100 ML IV SCH ×2 (00:33→16:38)
[2020-07-04] MEDS: mineral oil/petrolatum ophthal oint EACHEYE SCH ×4 (02:24→19:55)
[2020-07-04] MEDS: insulin regular, human U-100 3ml vial - multi-dose SQ SCH ×4 (02:25→21:37)
[2020-07-04 03:34] LABS: BASOPHILS % (AUTO) 0.1 % (0-1); EOSINOPHILS % (AUTO) 0.3 % (0-6); HEMATOCRIT 25.9 % (35.0-45.0); HEMOGLOBIN 8.6 g/dl (12.0-16.0); LYMPHOCYTES # (AUTO) 1.7 X10'3 (1.1-4.8); LYMPHOCYTES % (AUTO) 17.3 % (21-51); MEAN CORPUSCULAR HEMOGLOBIN 29.4 PG (27.0-31.0); MEAN CORPUSCULAR HGB CONC 33.4 g/dL (33.0-36.5); MEAN CORPUSCULAR VOLUME 88.2 FL (78-98); MEAN PLATELET VOLUME 11.3 FL (7.4-10.4); MONOCYTES # (AUTO) 1.5 X10'3 (0-0.9); MONOCYTES % (AUTO) 15.5 % (2-12); NEUTROPHILS # (AUTO) 6.6 X10'3 (1.8-7.7); NEUTROPHILS % (AUTO) 66.8 % (42-75); PLATELET COUNT 113 X10'3 (140-440); RED BLOOD COUNT 2.93 X10'6 (4.20-5.60); WHITE BLOOD COUNT 9.9 X10'3 (4.5-11.0)
[2020-07-04 03:51] LABS: D-DIMER 5.98 MG/L FEU (0-0.50)
[2020-07-04 04:01] LABS: ABG BASE EXCESS 0.1 mmol/L (-2.0-2.0); ABG PCO2 (T) 31.3 mmHg (32.0-45.0); ABG PO2 (T) 70.3 mmHg (75.0-100.0); ALLEN'S TEST POSITIVE; FCOHb 0.3 % (0.0-3.9); FMetHb 0.1 % (0.0-1.5); FO2Hb 93.6 % (94-97); PATIENT TEMPERATURE 37.5; PEEP 5 cm H2O; RESPIRATORY RATE 18 b/min; TIDAL VOLUME 400 mL; TOTAL HEMOGLOBIN 8.7 G/dl (12.0-16.0)
[2020-07-04 04:01] LABS: ALANINE AMINOTRANSFERASE 63 U/L (12-78); ALBUMIN 1.9 G/DL (3.4-5.0); ALBUMIN/GLOBULIN RATIO 0.5 (1.1-1.5); ALKALINE PHOSPHATASE 76 IU/L (46-116); ANION GAP 5 (8-16); ASPARTATE AMINO TRANSFERASE 65 U/L (10-37); BILIRUBIN,TOTAL 0.3 MG/DL (0.1-1.0); BLOOD UREA NITROGEN 21 MG/DL (7-18); BUN/CREATININE RATIO 43.8 (6.6-38.0); CHLORIDE 111 MMOL/L (99-107); CREATININE 0.48 MG/DL (0.40-0.90); GLUCOSE 127 MG/DL (70-104); MAGNESIUM 2.2 MG/DL (1.5-2.4); PHOSPHORUS 1.7 MG/DL (2.3-4.5); POTASSIUM 3.6 MMOL/L (3.5-5.1); PREALBUMIN 16.6 MG/DL (19-36); SODIUM 145 MMOL/L (135-145); TOTAL CARBON DIOXIDE 29.5 MMOL/L (24-32); TOTAL PROTEIN 5.8 G/DL (6.4-8.2); eGFR > 90 ML/MIN
[2020-07-04] MEDS: normal saline 1000ml 1,000 ML IV SCH (05:32)
--- NOTE | 2020-07-04 06:41 | NUR ---
Problems reprioritized. Patient report given, questions answered & plan of care reviewed with Aleena FITZPATRICK.
[2020-07-04] MEDS: lactobacillus rhamnosus 10,000 MMU CELLS/CAPSULE OGT SCH ×2 (07:54→19:55)
[2020-07-04] MEDS: dexamethasone sod phosphate 10mg/ml inj IV SCH (07:54)
[2020-07-04] MEDS: pantoprazole 40 MG vial IV SCH (07:55)
[2020-07-04] MEDS: enoxaparin 40mg/0.4ml syringe SUBCUT SCH ×2 (07:55→19:55)
[2020-07-04] MEDS: CefTRIAXone 2gm/D5W 50ml BAG 50 ML IV SCH (07:55)
[2020-07-04] MEDS ORDERED: furosemide 40mg/4ml inj IV SCH (08:00)
[2020-07-04] MEDS: K, MAG and/or Phos replacement - Verify level? MC SCH (08:00)
[2020-07-04] MEDS ORDERED: dextrose ORAL solution 15 GM/59 ML bottle OGT PRN ×2 (09:56)
[2020-07-04] MEDS ORDERED: sodium phosphate inj. 30 MMOL in dextrose 5%-water 250 ML IV ONE (10:35)
[2020-07-04] MEDS ORDERED: sodium phosphate inj. 15 MMOL in dextrose 5%-water 250 ML IV ONE (10:35)
[2020-07-04] MEDS ORDERED: sodium phosphate inj. 30 MMOL in dextrose 5%-water 250 ML IV PRN (11:15)
[2020-07-04] MEDS ORDERED: sodium phosphate inj. 15 MMOL in dextrose 5%-water 250 ML IV PRN (11:15)
[2020-07-04] MEDS: methylnaltrexone br 12mg/0.6ml inj***SubQ only SQ SCH (11:34)
--- NOTE | 2020-07-04 11:37 | NUR ---
Reassessment: Pt remains intubated at TF running at goal rate. GRV range 275-475 mL over the last 24 hours. D/w MD at critical care rounds, pt to begin routine Relistor. LBM 07/03 documented with diarrhea. Pt with a rectal tube in place documented with 520 mL stool output per I&O. Will continue to follow closely. Rec: 1. OGTF using Vital AF at 60ml/hr goal; to provide 1440ml volume, 1728 kcals, 1166ml water, and 108g protein. 2. PALB Q ; daily wts 3. additional water flush 100ml Q4 4. routine bowel care; opioid antagonist per MD Addendum: 07/04/20 at [address] Amended: Links added.
[2020-07-04] MEDS: ipratropium/albuterol 3ml nebule NEB PRN (11:52)
[2020-07-04] MEDS: FENTANYL-0.9 % NACL/PF 100 ML IV PRN (11:57)
--- NOTE | 2020-07-04 15:20 | NUR ---
Spoke with wood type finisherVani. Per her recommendation, pt tube feed running at goal 60ml/hr. Relistor started today.
--- NOTE | 2020-07-04 18:25 | NUR ---
Patient in room CICU 2006. I have received report from Aleena FITZPATRICK and had the opportunity to ask questions and assume patient care.
[2020-07-04] MEDS: insulin glargine (Lantus) pen - multi-dose SQ SCH (21:36)
[2020-07-05] VITALS (24 sets, daily range): BP systolic 100–115; BP diastolic 46–74
[2020-07-05] MEDS: normal saline 1000ml 1,000 ML IV SCH ×2 (00:34→21:19)
[2020-07-05] MEDS: mineral oil/petrolatum ophthal oint EACHEYE SCH ×4 (02:29→21:22)
[2020-07-05] MEDS: midazolam 100mg in NS 100ml 100 ML IV PRN (03:16)
[2020-07-05 03:35] LABS: BASOPHILS % (AUTO) 0.2 % (0-1); EOSINOPHILS # (AUTO) 0.2 X10'3 (0-0.9); EOSINOPHILS % (AUTO) 1.7 % (0-6); HEMATOCRIT 24.6 % (35.0-45.0); HEMOGLOBIN 8.3 g/dl (12.0-16.0); LYMPHOCYTES % (AUTO) 18.7 % (21-51); MEAN CORPUSCULAR HEMOGLOBIN 29.6 PG (27.0-31.0); MEAN CORPUSCULAR HGB CONC 33.8 g/dL (33.0-36.5); MEAN CORPUSCULAR VOLUME 87.3 FL (78-98); MEAN PLATELET VOLUME 10.2 FL (7.4-10.4); MONOCYTES # (AUTO) 1.1 X10'3 (0-0.9); MONOCYTES % (AUTO) 10.7 % (2-12); NEUTROPHILS # (AUTO) 7.2 X10'3 (1.8-7.7); NEUTROPHILS % (AUTO) 68.7 % (42-75); PLATELET COUNT 171 X10'3 (140-440); RED BLOOD COUNT 2.82 X10'6 (4.20-5.60); RED CELL DISTRIBUTION WIDTH 14.2 % (11.5-14.5); WHITE BLOOD COUNT 10.5 X10'3 (4.5-11.0)
[2020-07-05 03:47] LABS: ALANINE AMINOTRANSFERASE 76 U/L (12-78); ALBUMIN 1.9 G/DL (3.4-5.0); ALBUMIN/GLOBULIN RATIO 0.5 (1.1-1.5); ALKALINE PHOSPHATASE 71 IU/L (46-116); ANION GAP 5 (8-16); ASPARTATE AMINO TRANSFERASE 63 U/L (10-37); BILIRUBIN,TOTAL 0.5 MG/DL (0.1-1.0); BLOOD UREA NITROGEN 13 MG/DL (7-18); BUN/CREATININE RATIO 36.1 (6.6-38.0); C-REACTIVE PROTEIN 1.72 MG/DL (0.0-0.5); CALCIUM 7.3 MG/DL (8.5-10.1); CHLORIDE 106 MMOL/L (99-107); CREATININE 0.36 MG/DL (0.40-0.90); GLUCOSE 82 MG/DL (70-104); MAGNESIUM 1.8 MG/DL (1.5-2.4); POTASSIUM 3.1 MMOL/L (3.5-5.1); SODIUM 139 MMOL/L (135-145); TOTAL CARBON DIOXIDE 28.4 MMOL/L (24-32); TOTAL PROTEIN 5.6 G/DL (6.4-8.2); eGFR > 90 ML/MIN
[2020-07-05 04:06] LABS: ABG BASE EXCESS 1.9 mmol/L (-2.0-2.0); ABG HCO3 25.3 mmol/L (22.0-26.0); ABG OXYGEN SATURATION 93.4 % (94-97); ABG PCO2 (T) 36.8 mmHg (32.0-45.0); ABG PO2 (T) 70.9 mmHg (75.0-100.0); ALLEN'S TEST POSITIVE; FCOHb 0.3 % (0.0-3.9); FMetHb 0.1 % (0.0-1.5); PEEP 5 cm H2O; RESPIRATORY RATE 18 b/min; TIDAL VOLUME 400 mL; TOTAL HEMOGLOBIN 9.9 G/dl (12.0-16.0)
[2020-07-05] MEDS: potassium Cl 20mEq/100mL bag 100 ML IV PRN ×2 (05:41→07:11)
--- NOTE | 2020-07-05 06:28 | NUR ---
Problems reprioritized. Patient report given, questions answered & plan of care reviewed with Natalia FITZPATRICK.
[2020-07-05] MEDS: lactobacillus rhamnosus 10,000 MMU CELLS/CAPSULE OGT SCH ×2 (07:14→21:19)
[2020-07-05] MEDS: enoxaparin 40mg/0.4ml syringe SUBCUT SCH ×2 (07:14→21:19)
[2020-07-05] MEDS: pantoprazole 40 MG vial IV SCH (07:14)
[2020-07-05] MEDS: dexamethasone sod phosphate 10mg/ml inj IV SCH (07:14)
[2020-07-05] MEDS: acetaminophen 325mg/10.15ml oral unit dose solution OGT PRN (07:36)
[2020-07-05] MEDS: FENTANYL-0.9 % NACL/PF 100 ML IV PRN (07:45)
[2020-07-05] MEDS: K, MAG and/or Phos replacement - Verify level? MC SCH (08:58)
[2020-07-05] MEDS: CefTRIAXone 2gm/D5W 50ml BAG 50 ML IV SCH (09:42)
[2020-07-05] MEDS: dexmedetomidine/D5W 100mL 100 ML IV SCH ×2 (11:06→21:20)
[2020-07-05] MEDS: insulin regular, human U-100 3ml vial - multi-dose SQ SCH ×2 (14:15→22:12)
--- NOTE | 2020-07-05 18:30 | NUR ---
Patient in room CICU 2006. I have received report from Tasha FITZPATRICK and had the opportunity to ask questions and assume patient care.
[2020-07-05] MEDS: insulin glargine (Lantus) pen - multi-dose SQ SCH (21:00)
[2020-07-06] VITALS (17 sets, daily range): BP systolic 95–118; BP diastolic 45–65
[2020-07-06] MEDS: mineral oil/petrolatum ophthal oint EACHEYE SCH ×3 (02:13→13:48)
[2020-07-06] MEDS: insulin regular, human U-100 3ml vial - multi-dose SQ SCH ×2 (02:33→09:04)
[2020-07-06 02:55] LABS: BASOPHILS % (AUTO) 0.3 % (0-1); EOSINOPHILS # (AUTO) 0.2 X10'3 (0-0.9); EOSINOPHILS % (AUTO) 1.9 % (0-6); HEMATOCRIT 24.4 % (35.0-45.0); HEMOGLOBIN 8.1 g/dl (12.0-16.0); LYMPHOCYTES # (AUTO) 1.8 X10'3 (1.1-4.8); MEAN CORPUSCULAR HEMOGLOBIN 29.3 PG (27.0-31.0); MEAN CORPUSCULAR HGB CONC 33.2 g/dL (33.0-36.5); MEAN CORPUSCULAR VOLUME 88.2 FL (78-98); MEAN PLATELET VOLUME 9.8 FL (7.4-10.4); MONOCYTES # (AUTO) 1.4 X10'3 (0-0.9); MONOCYTES % (AUTO) 12.3 % (2-12); NEUTROPHILS # (AUTO) 7.8 X10'3 (1.8-7.7); NEUTROPHILS % (AUTO) 69.5 % (42-75); PLATELET COUNT 206 X10'3 (140-440); RED BLOOD COUNT 2.76 X10'6 (4.20-5.60); RED CELL DISTRIBUTION WIDTH 13.9 % (11.5-14.5); WHITE BLOOD COUNT 11.2 X10'3 (4.5-11.0)
[2020-07-06] MEDS: FENTANYL-0.9 % NACL/PF 100 ML IV PRN (02:56)
[2020-07-06] MEDS: midazolam 100mg in NS 100ml 100 ML IV PRN (02:56)
[2020-07-06 03:03] LABS: ALANINE AMINOTRANSFERASE 82 U/L (12-78); ALBUMIN 1.8 G/DL (3.4-5.0); ALBUMIN/GLOBULIN RATIO 0.5 (1.1-1.5); ALKALINE PHOSPHATASE 67 IU/L (46-116); ANION GAP 6 (8-16); ASPARTATE AMINO TRANSFERASE 55 U/L (10-37); BILIRUBIN,TOTAL 0.3 MG/DL (0.1-1.0); BLOOD UREA NITROGEN 14 MG/DL (7-18); BUN/CREATININE RATIO 35.9 (6.6-38.0); CALCIUM 7.3 MG/DL (8.5-10.1); CHLORIDE 105 MMOL/L (99-107); CREATININE 0.39 MG/DL (0.40-0.90); GLUCOSE 87 MG/DL (70-104); MAGNESIUM 1.9 MG/DL (1.5-2.4); PHOSPHORUS 3.6 MG/DL (2.3-4.5); POTASSIUM 3.8 MMOL/L (3.5-5.1); SODIUM 138 MMOL/L (135-145); TOTAL CARBON DIOXIDE 27.5 MMOL/L (24-32); TOTAL PROTEIN 5.8 G/DL (6.4-8.2); eGFR > 90 ML/MIN
[2020-07-06] MEDS ORDERED: LORazepam 2 mg/ml vial ONE (05:04)
[2020-07-06 06:26] LABS: D-DIMER 6.23 MG/L FEU (0-0.50)
--- NOTE | 2020-07-06 06:30 | NUR ---
Problems reprioritized. Patient report given, questions answered & plan of care reviewed with Tasha FITZPATRICK.
[2020-07-06] MEDS: dexmedetomidine/D5W 100mL 100 ML IV SCH (07:11)
[2020-07-06] MEDS: pantoprazole 40 MG vial IV SCH (07:12)
[2020-07-06] MEDS: lactobacillus rhamnosus 10,000 MMU CELLS/CAPSULE OGT SCH (07:12)
[2020-07-06] MEDS: dexamethasone sod phosphate 10mg/ml inj IV SCH (07:12)
[2020-07-06] MEDS: methylnaltrexone br 12mg/0.6ml inj***SubQ only SQ SCH (07:13)
[2020-07-06] MEDS: enoxaparin 40mg/0.4ml syringe SUBCUT SCH (07:14)
[2020-07-06] MEDS: acetaminophen 325mg/10.15ml oral unit dose solution OGT PRN (07:33)
[2020-07-06] MEDS: K, MAG and/or Phos replacement - Verify level? MC SCH (08:00)
[2020-07-06] MEDS ORDERED: valacyclovir 500mg tablet PO SCH (08:00)
[2020-07-06 09:40] LABS: ABG BASE EXCESS 0.5 mmol/L (-2.0-2.0); ABG HCO3 23.7 mmol/L (22.0-26.0); ABG OXYGEN SATURATION 96.6 % (94-97); ABG PCO2 (T) 33.8 mmHg (32.0-45.0); ABG PO2 (T) 92.7 mmHg (75.0-100.0); ALLEN'S TEST POSITIVE; FCOHb 0.3 % (0.0-3.9); FMetHb 0.3 % (0.0-1.5); PEEP 5 cm H2O; RESPIRATORY RATE 18 b/min; TIDAL VOLUME 400 mL; TOTAL HEMOGLOBIN 8.6 G/dl (12.0-16.0)
[2020-07-06] MEDS ORDERED: naloxone 0.4 mg/ml inj IV PRN (11:45)
[2020-07-06] MEDS ORDERED: ALBUTEROL INHALER 1 PUFF/90 MCG INHALER IH PRN (12:50)
[2020-07-06] MEDS: normal saline 1000ml 1,000 ML IV SCH (15:44)
[2020-07-06] MEDS ORDERED: HYDROcodone/acetaminophen 10/325mg tab PO PRN (16:00)
[2020-07-06] MEDS ORDERED: morphine 4 MG/ML inj SYRINge IV PRN (16:00)
--- NOTE | 2020-07-06 18:00 | NUR ---
Pt wanting to leave AMA because "I want to go home, I can lay around at home and no be in pain" per patient. Patient provided [place] and educated about risk of leaving against medical advise. Patient ambulated around room on RA with a Spo2 of 75%. Patient educated about the level her sPo2 needing to be above 90, and patient stated, "I dont care, I am going home". MD notified earlier in the day about her wanting to leave AMA. Md was okay with her leaving AMA as long as she was educated about her risks of leaving and her requirements to quarantine, she had the right to leave. Head Of Transport Logistics notified as well. Garcia removed at 1700; all intact upon removal. patient has yet to void. education provided about the importance of peeing after catheter removal. Central line removed with pressure dressing applied. Dressing is clean, dry and intact. flexi removed earlier in the day with no complications. Patient given AMA paperwork to sign. Patient is walking off the unit the security. Patient is getting a ride home from boyfriend. Education provided abut the importance of remaining quarantined.
== END 2020-07-06 18:45 | disposition left against medical advice (07) | DRG 720 ==
LOC: ER 18:35 → ED HOLD 23:09 → CICU 2S 07-01 01:00
PROVIDERS: ADMIT Internal Medicine Critical Care Medicine; ATTEND Internal Medicine Critical Care Medicine
PROC: 5A1955Z Respiratory Ventilation, Greater than 96 Consecutive Hours (ICD-10-PCS; principal; 2020-06-30)
PROC: 0BH17EZ Insertion of Endotracheal Airway into Trachea, Via Natural or Artificial Opening (ICD-10-PCS; 2020-06-30)
DX: A41.89 Other specified sepsis (principal); B96.20 Unspecified Escherichia coli [E. coli] as the cause of diseases classified elsewhere; F41.9 Anxiety disorder, unspecified; G93.40 Encephalopathy, unspecified; J96.01 Acute respiratory failure with hypoxia; N12 Tubulo-interstitial nephritis, not specified as acute or chronic; U07.1 COVID-19; J44.0 Chronic obstructive pulmonary disease with (acute) lower respiratory infection; Z53.29 Procedure and treatment not carried out because of patient's decision for other reasons
CPT/HCPCS: 36415; 36600; 71045; 71275; 80053; 81001; 82728; 82803; 82810; 82948; 83605; 83615; 83735; 83880; 84100; 84132; 84134; 84145; 84484; 85007; 85018; 85025; 85379; 85384; 86140; 86703; 87040; 87070; 87081; 93005; 94002; 94003; 94640; 94760; 94799; 96365; 99291; 99292; C9113; G0378; J0330; J0696; J1100; J1650; J1815; J1885; J1940; J2060; J2212; J2250; J3010; J3480; J7030; J7060; Q9967

== ENCOUNTER 2022-07-19 15:41 | Emergency (ER) | payer MEDICAID ==
[~2022-07-19] VITALS: Ht 165.1 cm; Wt 44.5 kg
[~2022-07-19 15:41] MED LIST changes: -ARIP5TAB14 PO; -CEFD300C3 PO; -ESCI5TAB PO; -NEOM10DR45 RIGHT EAR; +NO HOME MEDS; -PHEN-716 PO; -SULF-117 PO
[2022-07-19 16:08] VITALS: BP 107/62
[2022-07-19] MEDS ORDERED: triamcinolone acetonide 40mg/ml inj IM ONE (18:50)
[2022-07-19] MEDS ORDERED: cephalexin 500mg capsule PO ONE (18:50)
[2022-07-19 19:20] LABS: BASOPHILS % (AUTO) 0.1 % (0-1); EOSINOPHILS # (AUTO) 0.4 X10'3 (0-0.9); EOSINOPHILS % (AUTO) 4.7 % (0-6); HEMATOCRIT 41.8 % (35.0-45.0); HEMOGLOBIN 13.8 g/dl (12.0-16.0); LYMPHOCYTES # (AUTO) 2.5 X10'3 (1.1-4.8); LYMPHOCYTES % (AUTO) 27.9 % (21-51); MEAN CORPUSCULAR HEMOGLOBIN 28.8 PG (27.0-31.0); MEAN CORPUSCULAR VOLUME 87.4 FL (78-98); MEAN PLATELET VOLUME 7.5 FL (7.4-10.4); MONOCYTES # (AUTO) 0.9 X10'3 (0-0.9); MONOCYTES % (AUTO) 9.6 % (2-12); NEUTROPHILS # (AUTO) 5.1 X10'3 (1.8-7.7); NEUTROPHILS % (AUTO) 57.7 % (42-75); PLATELET COUNT 306 X10'3 (140-440); RED BLOOD COUNT 4.78 X10'6 (4.20-5.60); WHITE BLOOD COUNT 8.9 X10'3 (4.5-11.0)
[2022-07-19 19:32] LABS: ALANINE AMINOTRANSFERASE 16 U/L (12-78); ALBUMIN 3.6 G/DL (3.4-5.0); ALBUMIN/GLOBULIN RATIO 1.1 (1.1-1.5); ALKALINE PHOSPHATASE 74 IU/L (46-116); ANION GAP 5 (8-16); ASPARTATE AMINO TRANSFERASE 21 U/L (10-37); BILIRUBIN,TOTAL 0.6 MG/DL (0.1-1.0); BLOOD UREA NITROGEN 18 MG/DL (7-18); CALCIUM 8.7 MG/DL (8.5-10.1); CHLORIDE 101 MMOL/L (99-107); CREATININE 0.72 MG/DL (0.40-0.90); GLUCOSE 129 MG/DL (70-104); POTASSIUM 4.4 MMOL/L (3.5-5.1); SODIUM 136 MMOL/L (135-145); TOTAL CARBON DIOXIDE 29.6 MMOL/L (24-32); TOTAL PROTEIN 6.9 G/DL (6.4-8.2); eGFR > 90 ML/MIN
[2022-07-19] MEDS ORDERED: PRED20TA PO (21:00)
[2022-07-19] MEDS ORDERED: CEPH500C2 PO (21:00)
== END 2022-07-19 21:19 | disposition home or self-care (01) ==
LOC: ER 15:41
DX: L23.7 Allergic contact dermatitis due to plants, except food (principal); L01.00 Impetigo, unspecified; J45.909 Unspecified asthma, uncomplicated; F17.200 Nicotine dependence, unspecified, uncomplicated
CPT/HCPCS: 36415; 80053; 85025; 96372; 99283; J3301

== ENCOUNTER 2023-01-18 22:31 | Emergency (ER) | payer MEDICAID ==
[~2023-01-18] VITALS: Ht 165.1 cm; Wt 45.5 kg
[2023-01-18 23:28] VITALS: BP 131/83
[2023-01-19] MEDS ORDERED: ketorolac trometh inj. 60 MG/2 ML VIAL IM ONE (00:15)
[2023-01-19] MEDS ORDERED: amox tr/potassium clavulanate 875/125mg TAB PO ONE (00:15)
[2023-01-19] MEDS ORDERED: IBUP-1984 PO (00:17)
[2023-01-19] MEDS ORDERED: AMOX-117 PO (00:17)
== END 2023-01-19 01:10 | disposition home or self-care (01) ==
LOC: ER 22:32
DX: K04.7 Periapical abscess without sinus (principal); J45.909 Unspecified asthma, uncomplicated; Z79.899 Other long term (current) drug therapy
CPT/HCPCS: 96372; 99283; J1885

== ENCOUNTER 2024-10-24 18:32 | Emergency (ER) | payer MEDICAID ==
[~2024-10-24] VITALS: Ht 165.1 cm; Wt 66.8 kg
[2024-10-24] MEDS ORDERED: AMOX-117 PO (18:59)
[2024-10-24] MEDS: CefTRIAXone 1000mg IM Kit (w/lidocaine diluent) IM ONE (19:28)
[2024-10-24] MEDS: acetaminophen 325mg tablet PO ONE (19:28)
[2024-10-24 19:52] VITALS: BP 120/70; PULSE 86; RESP 16; TEMP 98.6; O2SAT 99
== END 2024-10-24 19:53 | disposition home or self-care (01) ==
LOC: ER 18:32
DX: H66.91 Otitis media, unspecified, right ear (principal); J45.909 Unspecified asthma, uncomplicated
CPT/HCPCS: 96372; 99283; J0696